=== PATIENT | male | born 1940 | race Hispanic/Latino ===

== ENCOUNTER 2017-10-19 13:40 | Outpatient (CLI) | payer MEDICARE, OTHER ==
--- NOTE | 2017-10-19 14:43 | XRay Report ---
XRAY RIGHT KNEE 4 THREE VIEWS: 10/19/17 CLINICAL: Right knee pain. FINDINGS: Osteoarthritis of the medial joint space with narrowing of the joint space and small medial osteophytes. Several possible loose bodies in the joint. Widening of the lateral joint space and small lateral osteophytes. Severe patellofemoral joint osteoarthritis with large osteophytes and heterotopic bone formation.No joint effusion. No fracture or dislocation. Normal soft tissues. IMPRESSION: Severe osteoarthritis of the medial joint space with possible loose bodies. Severe patellofemoral joint osteoarthritis and less severe osteoarthritis of the lateral joint space.
== END 2017-10-19 13:41 | disposition home or self-care (01) ==
LOC: SPVIMAG 13:40
PROVIDERS: ATTEND Orthopaedic Surgery Sports Medicine
DX: M17.11 Unilateral primary osteoarthritis, right knee (principal)

== ENCOUNTER 2017-12-01 11:14 | Outpatient (CLI) | payer MEDICARE, OTHER ==
--- NOTE | 2017-12-01 12:49 | XRay Report ---
CERVICAL SPINE SERIES THREE VIEWS: 12/01/17 11:14:00 CLINICAL: Neck pain. FINDINGS: Mild dextroscoliosis and hyperextension of the neck. Alignment is normal through C6. The shoulders obscure C6-T1 on the lateral view and the clavicle overlies C7-T1 on the swimmer's view. Large anterior osteophytes from C2-3 through C4-5. Mild disc space narrowing at C4-5. The rest of the disc spaces are preserved. Facet joint sclerosis at C3-4. Normal odontoid and C1. IMPRESSION: Cervical scoliosis and extensive spondylosis. C3-4 facet joint arthropathy with fusion of facet joints.
== END 2017-12-01 11:15 | disposition home or self-care (01) ==
LOC: SPVIMAG 11:14
PROVIDERS: ATTEND Orthopaedic Surgery Sports Medicine
DX: M47.892 Other spondylosis, cervical region (principal); M41.82 Other forms of scoliosis, cervical region; M12.88 Other specific arthropathies, not elsewhere classified, other specified site
CPT/HCPCS: 72040